=== PATIENT | male | born 1985 | race Asian ===

== ENCOUNTER 2022-04-26 15:11 | Emergency (ER) | payer OTHER ==
[2022-04-26 15:33] VITALS: BP 137/92; PULSE 96; TEMP 97.9; BMI 25.7
== END 2022-04-26 16:10 | disposition home or self-care (01) ==
LOC: FER 15:11
DX: R11.11 Vomiting without nausea (principal)
CPT/HCPCS: 99281-25

== ENCOUNTER 2022-04-27 03:52 | Emergency (ER) | payer OTHER ==
[2022-04-27 03:58] VITALS: BP 149/96; PULSE 123; TEMP 98.8; BMI 25.7
[2022-04-27] MEDS ORDERED: HALOPERIDOL 5 MG TABLET PO ONE (04:55)
[2022-04-27] MEDS ORDERED: HALOPERIDOL LACTATE 5 MG/ML ONE (04:59)
[2022-04-27] MEDS ORDERED: SODIUM CHLORIDE 500 ML IV STA (05:07)
[2022-04-27 05:55] LABS: HEMATOCRIT 40.5 % (35.4-49); HEMOGLOBIN 13.8 GM/dL (11.7-16.9); MCH 32.8 pg (25.7-33.7); MCHC 34.1 g/dl (32.0-35.9); MEAN CELL VOLUME 95.9 fl (80-96); MEAN PLT VOLUME 7.3 fl (7.5-11.1); PLATELET COUNT 400 10^3/uL (134-434); RBC 4.23 M/mm3 (4.00-5.60); RDW 13.1 % (11.9-15.9); WHITE BLOOD COUNT 11.6 K/mm3 (4.0-10.0)
[2022-04-27 06:04] LABS: INR 0.98 (0.83-1.09); PROTHROMBIN TIME (PATIENT) 11.3 SEC (9.7-13.0)
[2022-04-27 06:13] LABS: BLOOD UREA NITROGEN 9.9 mg/dL (7-18); CALCIUM 8.9 mg/dL (8.5-10.1)
[2022-04-27 06:14] LABS: ALBUMIN 4.1 g/dl (3.4-5.0)
[2022-04-27 06:17] LABS: CREATININE 0.7 mg/dL (0.55-1.3)
[2022-04-27 06:18] LABS: BILIRUBIN,TOTAL 0.4 mg/dL (0.2-1); TOT PROT 7.3 g/dl (6.4-8.2)
[2022-04-27 08:41] LABS: ANISOCYTOSIS 0; HELMET CELLS 0; HOWELL-JOLLY BODIES 0; MACROCYTOSIS 0; OVALOCYTE 0; ROULEAU 0; SICKELED CELLS 0; TARGET CELLS 0; TEAR DROP CELLS 0; TOXIC GRANULATION 0
== END 2022-04-27 05:59 | disposition home or self-care (01) ==
LOC: FER 03:52
PROC: 3E0337Z Introduction of Electrolytic and Water Balance Substance into Peripheral Vein, Percutaneous Approach (ICD-10-PCS; principal; 2022-04-27)
DX: F07.81 Postconcussional syndrome (principal)
CPT/HCPCS: 36415; 70450-TC; 80053; 82962; 85025; 85610; 99284-25